=== PATIENT | male | born 1950 | race Caucasian/White ===

== ENCOUNTER 2020-09-29 10:44 | Outpatient (CLI) | payer MEDICARE, OTHER, SELFPAY ==
--- NOTE | ~2020-09-29 | CT_ITS ---
EXAMINATION: CT lung screening DATE: 09/29/2020 10:57 INDICATION: Personal history of nicotine dependence TECHNIQUE: Computed tomography (CT) of the paranasal sinuses was performed without intravenous contra st. The dose-length product was 97.72 mGy-cm. Automated exposure control and iterative reconstruction technique were employed. COMPARISON: CT dated 09/24/2016 FINDINGS: There are calcifications in the spleen, consistent with chronic granulomatous disease. Hear t size normal. No significant pleural or pericardial effusion. No thoracic lymphadenopathy. There are multiple chronic left rib fractures.. Moderate thoracic spondylosis. Mild emphysema. No suspicious p ulmonary nodules or masses. No endobronchial lesions. There is a 2 mm groundglass nodule left upper l obe. IMPRESSION: 1. Lung-RADS category 2: Benign appearance or behavior. Continue annual screening with noncontrast lo w-dose chest CT in 12 months. Reviewed, dictated and finalized at location B. BLACK IMPRESSION: 1. Lung-RADS category 2: Benign appearance or behavior. Continue annual screeni ng with noncontrast low-dose chest CT in 12 months.
== END 2020-09-29 10:45 | disposition home or self-care (01) ==
LOC: ANHIMG 10:48
PROVIDERS: PCP Family Medicine; Visit Provider Family Medicine
DX: Z12.2 Encounter for screening for malignant neoplasm of respiratory organs (principal); Z87.891 Personal history of nicotine dependence
CPT/HCPCS: 71271

== ENCOUNTER 2022-05-21 12:26 | Outpatient (CLI) | payer MEDICARE, OTHER, SELFPAY | END 2022-05-21 12:27 | disposition home or self-care (01) | PROVIDERS: PCP Family Medicine; Visit Provider Physician Assistant | DX: Z79.899 Other long term (current) drug therapy (principal); I10 Essential (primary) hypertension; E78.2 Mixed hyperlipidemia; Z12.5 Encounter for screening for malignant neoplasm of prostate | CPT/HCPCS: 36415 ==

== ENCOUNTER 2022-07-19 10:47 | Outpatient (CLI) | payer MEDICARE, OTHER, SELFPAY | END 2022-07-19 10:48 | disposition home or self-care (01) | LOC: ANHAUDIO 10:48 | PROVIDERS: PCP Family Medicine; Visit Provider Otolaryngology | DX: H90.42 Sensorineural hearing loss, unilateral, left ear, with unrestricted hearing on the contralateral side (principal); H90.71 Mixed conductive and sensorineural hearing loss, unilateral, right ear, with unrestricted hearing on the contralateral side | CPT/HCPCS: 92557; 92567 ==

== ENCOUNTER 2022-10-14 14:02 | Outpatient (CLI) | payer MEDICARE, SELFPAY | END 2022-10-14 14:03 | disposition home or self-care (01) | LOC: ANHAUDASC 14:03 → ANHAUDIO 14:11 | PROVIDERS: PCP Family Medicine; Visit Provider Otolaryngology | DX: H90.3 Sensorineural hearing loss, bilateral (principal) | CPT/HCPCS: 92557; 92567; 99199 ==

== ENCOUNTER 2022-11-26 13:38 | Outpatient (CLI) | payer MEDICARE, SELFPAY ==
[2022-11-26 14:57] LABS: Kit Draw Collected
== END 2022-11-26 13:39 | disposition home or self-care (01) ==
LOC: ANHGOSHLAB 13:39
PROVIDERS: PCP Family Medicine; Visit Provider Family Medicine
DX: Z12.5 Encounter for screening for malignant neoplasm of prostate (principal); E78.2 Mixed hyperlipidemia; F17.210 Nicotine dependence, cigarettes, uncomplicated; Z11.59 Encounter for screening for other viral diseases
CPT/HCPCS: 36415

== ENCOUNTER → 2023-01-28 11:16 | Outpatient (CLI) | payer MEDICARE, SELFPAY ==
--- NOTE | ~2023-01-28 | US_ITS ---
EXAMINATION: US aorta preventative scrn DATE: 01/28/2023 12:39 CDT INDICATION: Preventative screening for aneurysm. Hypertension. Smoking history. High cholesterol. TECHNIQUE: Grayscale, color Doppler, and pulsed Doppler images of the aorta and common iliac arteries were obtained. COMPARISON: None. FINDINGS: The proximal aorta measures 2.6 cm greatest sagittal dimension. The mid aorta measures 2.1 cm greates t sagittal dimension. The distal aorta measures 2 cm greatest sagittal dimension. The right common in ternal iliac artery measures 1 cm. The left common iliac artery measures 1 cm. IMPRESSION: 1. Normal caliber aorta without aneurysm. Reviewed, dictated and finalized at location L.
== END ==
PROVIDERS: PCP Family Medicine; Visit Provider Physician Assistant
DX: Z13.6 Encounter for screening for cardiovascular disorders (principal)
CPT/HCPCS: 76706

== ENCOUNTER → 2023-02-03 08:12 | Outpatient (CLI) | payer MEDICARE, SELFPAY ==
--- NOTE | ~2023-02-03 | CT_ITS ---
EXAMINATION: CT diagnostic chest wo con DATE: 02/03/2023 08:25 INDICATION: Solitary pulmonary nodule. TECHNIQUE: Computed tomography (CT) of the chest was performed without intravenous contrast. The dose -length product was 109.19 mGy-cm. Automated exposure control and iterative reconstruction technique were employed. COMPARISON: CT dated 09/29/2020 FINDINGS: Heart size normal. No thoracic lymphadenopathy. No significant pleural or pericardial effus ion. Multiple healed left rib fractures. There are calcified granulomas in the mediastinum, liver and spleen. No endobronchial lesions. There are developing coarse interstitial changes of the lower lung s with interlobular septal thickening suggesting usual interstitial pneumonia. There is a stable 4 mm lingular nodule, image 74. There is adjacent atelectasis/scarring. No endobronchial lesions. No pneu mothorax. IMPRESSION: 1. Stable 4 mm lingular nodule, likely benign. Follow-up low dose CT chest in 12 months recommended. 2: Interval progression of mild interstitial lung disease with a pattern consistent with usual inter stitial pneumonia. Reviewed, dictated and finalized at location [] IMPRESSION: 1. Stable 4 mm lingular nodule, likely benign. Follow-up low dose CT chest in 1 2 months recommended. 2: Interval progression of mild interstitial lung disease with a pattern consi stent with usual interstitial pneumonia.
== END ==
PROVIDERS: PCP Family Medicine; Visit Provider Physician Assistant
DX: R91.1 Solitary pulmonary nodule (principal); J84.9 Interstitial pulmonary disease, unspecified
CPT/HCPCS: 71250

== ENCOUNTER 2023-06-28 17:33 | Emergency (ER) | payer MEDICARE, SELFPAY ==
--- NOTE | ~2023-06-28 | XR_ITS ---
EXAM: XR elbow LT min 3V DATE: 06/28/2023 18:23 HISTORY: pain, redness, swelling . COMPARISON: None available. FINDINGS: Normal mineralization. No fracture or dislocation. No lytic or blastic lesion. Joint space s are maintained. No erosion or periosteal change. Marked soft tissue swelling over the olecranon. IMPRESSION: Marked soft tissue swelling over the olecranon which may represent olecranon bursitis in the appropriate clinical context. Reviewed, dictated and finalized at location K. UCTION MINER
[2023-06-28 17:40] VITALS: BP 126/71; PULSE 75; RESP 17; TEMP 36.4; O2SAT 100
--- NOTE | 2023-06-28 17:48 | ED.EXTPRO ---
HPI - Extremity Problem General Chief complaint: Extremity Injury, Upper Stated complaint: left arm injury with possible infection Time Seen by Provider: 06/28/23 17:38 Source: patient Mode of arrival: ambulatory Limitations: no limitations History of Present Illness HPI Narrative: Patient is a 72-year-old male who presents to the ED with report of left elbow pain. Patient reports he slipped on carpet 1 week ago and sustained a rubgburn to his L elbow. He states the abrasion was approximately the size of a nickel and does not seem to have healed correctly. Over the last 1 week, patient has developed increased pain, swelling, redness/warmth to left elbow. Reports pain with range of motion of elbow. Noted swelling into his L forearm today which prompted his presentation. Denies numbness or tingling. Reports chills, denies fever. Related Data Home Medications Medication Instructions Recorded Confirmed aspirin 81 mg tablet,delayed 81 mg PO DAILY 06/18/22 01/28/23 release (Adult Low Dose Aspirin) Allergies Allergy/AdvReac Type Severity Reaction Status Date / Time Sulfa (Sulfonamide Allergy Unknown Hives Verified 06/28/23 17:34 Antibiotics) Review of Systems Review of Systems: CONSTITUTIONAL: See HPI. CARDIOVASCULAR: Denies chest pain. RESPIRATORY: Denies dyspnea. GASTROINTESTINAL: Denies abdominal pain, nausea, vomiting. SKIN: See HPI. MUSCULOSKELETAL: See HPI. NEUROLOGIC: Denies tingling, numbness, or weakness. All systems reviewed & are unremarkable except as noted in HPI and below PMFSH Past Medical History Medical History COVID-19 Sciatica Family History Family History Father Hypertension Acute myocardial infarction Mother Family history of Parkinson's disease Social History Social History Smoking packs per day: 1 Smoking cigarettes per day: 20.0 Years smoked: 20 Smoking pack-years: 20.00 Smoking status: Former smoker Tobacco type: cigarettes Second hand tobacco smoke exposure: No Alcohol intake: current Alcohol use details: occasionally Substance use: never Lack of Transportation: No Lack of Food: Never True Current Housing: I Have Housing Concerned About Future Housing: No Difficulty Paying Gas/Electric Bills: No Difficulty Paying for Meds: No Currently Unemployed: No Education: Bachelor's Degree Difficulty w/ Childcare or Family Care: No Exam Narrative: GENERAL: Well appearing, well-nourished, non-toxic, in no acute distress. HEAD: Normocephalic, atraumatic. NECK: Supple. No adenopathy, no masses. RESPIRATORY: Airway patent, respirations nonlabored. Clear to auscultation bilaterally, no rales, rhonchi, wheezing. CARDIOVASCULAR: Regular rate and rhythm without murmurs, rubs, or gallops. Radial pulses 2+ and equal bilaterally. MUSCULOSKELETAL: Moves all extremities. Minor limitations of left elbow range of motion due to swelling and pain. Left elbow with moderate amount of focal swelling over the olecranon, consistent with bursitis picture. Redness, warmth, fluctuance, tenderness noted. Clear fluid-filled blister over the tip of olecranon. Scabbed abrasion just distal to tip of the olecranon. Sensation intact. SKIN: Warm, dry, normal color. No rashes. NEURO: A&O X3. Speech clear. Cranial nerves II-XII grossly intact. No ataxic movements. PSYCHIATRIC: Appropriate mood and affect. Normal interaction. Course Vital Signs Vital signs: Vital Signs Temperature 97.5 F L 06/28/23 17:40 Pulse Rate 75 06/28/23 17:40 Respiratory Rate 17 06/28/23 17:40 Blood Pressure 126/71 06/28/23 17:40 Pulse Oximetry 100 06/28/23 17:40 Oxygen Delivery Room Air 06/28/23 17:40 Temperature 97.5 F L 06/28/23 17:40 Pulse Rate 72 06/28/23 21:16 Res
[2023-06-28 18:15] LABS: Basophils Absolute Auto 0.1 K/mm3 (0.0-0.1); Basophils Percent Auto 0.6 % (0.2-1.2); Eosinophils Absolute Auto 0.1 K/mm3 (0-0.3); Eosinophils Percent Auto 0.4 % (0-4.4); Hematocrit 34.8 % (42.0-52.0); Immature Granulocyte Absolute 0.07 K/mm3 (0.00-0.031); Immature Granulocyte Percent A 0.6 % (0-0.5); Lymphocytes Absolute Auto 2.16 K/mm3 (0.9-3.2); Lymphocytes Percent Auto 17.8 % (18.3-44.2); Mean Corpuscular HGB Conc 34.5 g/dl (32-36); Mean Corpuscular Hemoglobin 32.1 pg (26-34); Mean Platelet Volume 8.7 fl (7.4-10.4); Monocytes Absolute Auto 1.7 K/mm3 (0.1-0.6); Monocytes Percent Auto 14.1 % (2.6-8.5); Neutrophils Absolute Auto 8.1 K/mm3 (1.3-6.7); Neutrophils Percent Auto 66.5 % (45.5-73.1); Platelet Count Result 267 k/mm3 (150-375); Red Blood Count 3.74 M/mm3 (4.6-6.20); Red Cell Distribution Width 12.1 % (11.5-14.5); White Blood Count 12.1 K/mm3 (4.5-10.0)
[2023-06-28 18:25] LABS: Lactic Acid Reflex 2.2 mmol/L (0.7-2.0)
[2023-06-28 18:43] LABS: Anion Gap 11 mmol/L (8-16); Blood Urea Nitrogen 25 mg/dL (9-20); Calcium 9.7 mg/dL (8.4-10.2); Carbon Dioxide 26 mmol/L (22-30); Chloride 95 mmol/L (98-107); Estimated CRCL calculation 66 ml/min; Estimated Glomerular Filt Rate > 60; Glucose 90 mg/dL (65-110); Potassium 3.8 mmol/L (3.4-5.0); Sodium 132 mmol/L (137-145)
[2023-06-28 19:02] LABS: Erythrocyte Sedimentation Rate 53 mm/hr (0-20)
[2023-06-28] MEDS: LIDOCAINE HCL 1% LOCAL INJ 10 ML VIAL 5 ML INFILTRATE (20:45)
[2023-06-28 21:10] LABS: Reflex Lactic Acid Yes or No Add Lactic
[2023-06-28] MEDS: CEPHALEXIN 500 MG CAPSULE PO (21:12)
[2023-06-28 21:16] VITALS: BP 127/71; PULSE 72; RESP 17; O2SAT 100
[2023-06-28 22:02] LABS: Crystals Synovial Fluid None Seen (None Seen)
[2023-06-28 22:03] LABS: Color Synovial Fluid Yellow (Colorless); Source Synovial Fluid Synovial fluid
[2023-06-28 22:04] LABS: Appearance Synovial Fluid Hazy (Clear); Lymphocytes Synovial Fluid 2 %; Monocytes Synovial Fluid 1 %; Neutrophils Synovial Fluid 97 % (0-25); Nucleated Cell Synovial Fluid 6760 /uL (0-200); RBC Synovial Fluid 18000 /uL (0-0)
== END 2023-06-28 21:17 | disposition home or self-care (01) ==
PROVIDERS: Emergency Provider Physician Assistant; PCP Family Medicine
DX: M71.122 Other infective bursitis, left elbow (principal); K92.1 Melena; Z86.16 Personal history of COVID-19; Z87.891 Personal history of nicotine dependence
CPT/HCPCS: 20605; 20610; 36415; 73080; 80048; 83605; 85025; 85652; 86140; 87070; 87075; 87147; 87181; 87186; 87205; 89051; 89060; 99283; A9270

== ENCOUNTER 2023-08-21 11:51 | Emergency (ER) | payer MEDICARE, SELFPAY ==
--- NOTE | ~2023-08-21 | XR_ITS ---
EXAMINATION: XR lumbar spine 2-3V DATE: 08/21/2023 12:19 INDICATION: Low back pain post fall TECHNIQUE: Anteroposterior and lateral views of the lumbar spine, and cone-down lateral view of the l umbosacral junction were obtained. COMPARISON: 07/24/2004 FINDINGS: Interval increase in now 20 degrees lumbar dextroscoliosis. 2 mm retrolisthesis L2 on L3 and 2 mm ant erolisthesis L4 on L5. T12 compression fracture with 20% anterior to central vertebral body height lo ss. Lumbar vertebral body heights are normal. Severe left-sided predominant disc height loss at L2-L3 . Moderate disc height loss at L1-L2, L4-5 and L5-S1. Moderate right and mild left hip osteoarthritis . Mild bilateral sacroiliac osteoarthritis. Calcified nodules at the right lung base consistent with old granulomatous disease. IMPRESSION: 1. Age-indeterminate T12 compression fracture with 20% mixture central vertebral body height loss whi ch is new since CT dated 02/03/2023. 2. Interval progression of now 20 degrees lumbar dextroscoliosis and severe spondylosis. Reviewed, dictated and finalized at location A. TS SPECIALIST IMPRESSION: 1. Age-indeterminate T12 compression fracture with 20% mixture central vertebra l body height loss which is new since CT dated 02/03/2023. 2. Interval progression of now 20 degrees lumbar dextroscoliosis and severe spo ndylosis.
--- NOTE | 2023-08-21 11:58 | ED.BACK ---
HPI - Back Pain/Injury General Chief Complaint: Back Pain/Injury Stated Complaint: FALL/BACK PAIN Time Seen by Provider: 08/21/23 11:58 Source: patient Mode of arrival: ambulatory Limitations: no limitations History of Present Illness HPI Narrative: Wale is a 72-year-old male patient who presenting to the clinic today with complaints of fall with back pain. He reports he tripped over a dog leash in his kitchen and fell face forward. Is unaware if he hit the counter top. Reports pain to his mid to low back over the musculature. This occurred on August 03. He reports he is still having some discomfort and is concerned that he may have done some to his back or kidneys. He denies any loss of bowel or bladder, he denies any saddle anesthesia, no numbness or tingling radiating down the legs. Denies unsteady gait. Related Data Home Medications Medication Instructions Recorded Confirmed aspirin 81 mg tablet,delayed 81 mg PO DAILY 06/18/22 08/21/23 release (Adult Low Dose Aspirin) ezetimibe 10 mg tablet 10 mg PO DAILY 08/21/23 08/21/23 Allergies Allergy/AdvReac Type Severity Reaction Status Date / Time Sulfa (Sulfonamide Allergy Unknown Hives Verified 08/21/23 12:01 Antibiotics) Review of Systems Review of Systems: Pertinent positives per HPI. Patient denies any fever, chills, rash, headache, visual changes, dizziness, cough, runny nose, sore throat, shortness of breath, chest pain, palpitations, nausea, vomiting, diarrhea, constipation, abdominal pain, or any urinary issues. [facility] Past Medical History Medical History COVID-19 Sciatica Family History Family History Father Hypertension Acute myocardial infarction Mother Family history of Parkinson's disease Social History Social History Smoking packs per day: 1 Smoking cigarettes per day: 20.0 Years smoked: 20 Smoking pack-years: 20.00 Smoking status: Former smoker Tobacco type: cigarettes Second hand tobacco smoke exposure: No Alcohol intake: current Alcohol use details: occasionally Substance use: never Lack of Transportation: No Lack of Food: Never True Current Housing: I Have Housing Concerned About Future Housing: No Difficulty Paying Gas/Electric Bills: No Difficulty Paying for Meds: No Currently Unemployed: No Education: Bachelor's Degree Difficulty w/ Childcare or Family Care: No Living arrangements: with family Occupation/Education: retired Comments At the time of my signature, I reviewed and agree with the nursing past medical, surgical, social, and family history. There is no relevant family history pertinent to the patient complaint. Exam Narrative: General: Well-developed, well nourished, in no apparent distress Head: Normocephalic, atraumatic. Cardio: Regular rate and rhythm, s1 and s2 normal, no murmur appreciated. Resp: Clear to auscultation bilaterally, no rhonchi, rales, wheezing or rubs. Musculoskeletal: No deformity, no bruising or swelling, mild-tender to palpation over the lower thoracic/lumbar spine and paraspinous musculature, discomfort with flexion and extension of the back, grossly normal range of motion, muscle strength strong and equal, peripheral pulse strong, no edema, no cyanosis, normal gait and station Course Course Emergency Course: Portions of this record may have been created with voice recognition software. Level of Care: Express Care Visit Vital Signs Vital signs: Vital signs reviewed MDM - Back Pain/Injury MDM Narrative Medical decision making narrative: At the time of visit patient is resting comfortably on the exam table. Patient appears to be nontoxic. Supportive measures were discussed with the patient and they voiced understanding discharge instructions and a
[2023-08-21 12:04] VITALS: BP 139/89; PULSE 87; RESP 16; TEMP 36.3; O2SAT 100
== END 2023-08-21 13:54 | disposition home or self-care (01) ==
PROVIDERS: Emergency Provider Nurse Practitioner Family; PCP Family Medicine
DX: S22.080A Wedge compression fracture of T11-T12 vertebra, initial encounter for closed fracture (principal); W18.09XA Striking against other object with subsequent fall, initial encounter; R31.29 Other microscopic hematuria; R80.8 Other proteinuria; Z87.891 Personal history of nicotine dependence; Z86.16 Personal history of COVID-19; Z79.82 Long term (current) use of aspirin
CPT/HCPCS: 72100; 81003; 99213; G0463

== ENCOUNTER 2024-03-23 09:11 | Outpatient (CLI) | payer MEDICARE, SELFPAY ==
--- NOTE | ~2024-03-23 | CT_ITS ---
CT Scan of the Chest without Contrast: Clinical Indication: Lung cancer screening, nicotine dependence Technique: Contiguous sections were acquired throughout the chest without intravenous contrast. Dose reduction technique was used on this scan by utilizing automated exposure control and iterative recon struction technique. The dose-length product (DLP) was 108.72 mGy-cm. COMPARISON: 02/03/2023 Findings: There is no evidence of any significant mediastinal, hilar or axillary lymphadenopathy. Calcified sub carinal and right hilar lymph nodes are present. Coronary artery calcifications are present. There is no evidence of pleural or pericardial effusion. There is bibasilar mild chronic interstitial disease. Calcified right basilar granuloma present. Images through the upper abdomen reveal no abnormalities. There is severe L1 compression fracture, po ssibly acute, though age-indeterminate overall. Impression: Lung RADS 2-S: Benign appearance. 12 month follow-up screening CT advised. Severe L1 compression fracture, suspected to be acute. Correlate clinically. Consider additional work up as indicated. Reviewed, dictated and finalized at [facility]. Impression: Lung RADS 2-S: Benign appearance. 12 month follow-up screening CT advised. Severe L1 compression fracture, suspected to be acute. Correlate clinically. Co nsider additional workup as indicated.
== END 2024-03-23 09:12 ==
LOC: GOSHIMG 09:12
PROVIDERS: PCP Student in an Organized Health Care Education/Training Program; Visit Provider Student in an Organized Health Care Education/Training Program
DX: Z12.2 Encounter for screening for malignant neoplasm of respiratory organs (principal); Z87.891 Personal history of nicotine dependence; S32.010D Wedge compression fracture of first lumbar vertebra, subsequent encounter for fracture with routine healing; X58.XXXD Exposure to other specified factors, subsequent encounter
CPT/HCPCS: 71271

== ENCOUNTER 2024-09-14 11:19 | Outpatient (CLI) | payer MEDICARE, SELFPAY ==
--- OUTSIDE RECORDS SUMMARY | 2024-09-14 12:29 | XMS_ITS | Referral Summary ---
Author Organization [facility] Address [address] [place] [address] Care Team Providers Care Computer Operations Manager Name Role Phone Unavailable Primary Care Provider Unavailabl e Source Comments [facility] [employer],non-owned Affiliates and Associated Physician Practices is amultiple site organization consisting of ambulatory clinics and hospital sitesin [place], [place], [place] and [place]. This disclosure is being madepursuant to the Care Everywhere program and may not contain all information available regarding this patient. Last updated 18.[facility] [employer] Allergies No known active allergies Immunizations Name Administration Dates Next Due INFLUENZA VACCINE, HIGH-DOSE , QUADR. (FLUZONE HIGH-DOSE QUADRIVALENT; 65Y+), 0.7 ML (HD-IIV4) 07/09/2017 Social History Tobacco Use Types Packs/Day Years Used Date Smoking Tobacco: Never Assessed Sex and Gender Information Value Date Recorded Sex Assigned at Not on file Gender Identity Not on file Sexual Orientation Not on file Plan of Treatment Not on file
--- OUTSIDE RECORDS SUMMARY | 2024-09-14 12:29 | XMS_ITS | Clinical Summary ---
Author Organization [facility] Address [address] [place] [address] Care Team Providers Care Cosmetology Educator Name Role Phone Unavailable Primary Care Provider Unavailabl e Source Comments [facility],non-owned Affiliates and Associated Physician Practices is amultiple site organization consisting of ambulatory clinics and hospital sitesin [place], [place], [place] and [place]. This disclosure is being madepursuant to the Care Everywhere program and may not contain all information available regarding this patient. Last updated 18.[facility] Allergies No known active allergies Immunizations Name Administration Dates Next Due INFLUENZA VACCINE, HIGH-DOSE , QUADR. (FLUZONE HIGH-DOSE QUADRIVALENT; 65Y+), 0.7 ML (HD-IIV4) 07/09/2017 Social History Tobacco Use Types Packs/Day Years Used Date Smoking Tobacco: Never Assessed Sex and Gender Information Value Date Recorded Sex Assigned at Not on file Gender Identity Not on file Sexual Orientation Not on file Plan of Treatment Health Maintenance Due Date Last Done Comments COLOGUARD (AGES 45-75) - COL ON CA SCREENING 1951 COLON MONITORING 1951 COLONOSCOPY - COLON CA SCREENING 1951 CT COLONOGRAPHY - COLON CA SCREENING 1950 Colorectal Cancer Screening 1950 FIT - COLON CA SCREENING 1950 FLEX SIG - COLON CA SCREENING 1950 LIPID TESTING 1950 HEPATITIS C SCREENING 11/27/1969 DTAP/TDAP/TD VACCINES (1 - Tdap) 12/01/1970 PNEUMOCOCCAL VACCINE 50+ (1 of 1 - PCV) 12/01/2001 ZOSTER VACCINE (1 of 2) 12/01/2001 COVID-19 VACCINE (1 - 2023-2 5 season) 2024 INFLUENZA VACCINE (#1) 2024 07/09/2017 DEPRESSION SCREENING 08/18/2024 Respiratory Syncytial Virus (RSV) Vaccine Pt: or over 60 yrs (1 - 1-dose 75+ series) 12/01/2026 HEPATITIS B VACCINE Aged Out No longe r eligible based on patient's age to complete this topic HIB VACCINE Aged Out No longer eligi ble based on patient's age to complete this topic HPV VACCINE Aged Out No longer eligi ble based on patient's age to complete this topic MENINGOCOCCAL (Group B) VACCINE Aged Out No longer eligible based on patient's age to complete this topic MENINGOCOCCAL VACCINE Aged Out No pillo matilde eligible based on patient's age to complete this topic
--- OUTSIDE RECORDS SUMMARY | 2024-09-14 12:29 | XMS_ITS | Continuity of Care Document ---
Author Organization [facility] Address [address] [place] [address] [place] [address] Phone Care Team Providers Care Matchbook Maker Name Role Phone [facility] Unavailable Unavail able Adrien, Sanjana Unavailable Unavailable Advance Directives Directive Yes / No Effective Date File Name No Information Encounters Encounter Description Practice Location Reason(s) For Visit Diagnoses Date Provider Providers Copied on Encounter [facility], [address], [place], [place], [id number], [place] tel:[phone] [facility]3] No Information Dec-0 5-200 5 [facility] [employer] [address], [address], [place], [place], [id number] , [place]. [phone] Consulting Provider: Sanjana Jurado, [address] [place] [address], [address]. tel:[phone] Family History Family Member Type Diagnosis Age At Onset No Information Payers Payer name Insurance type Covered constitution party ID Authoriza tion(s) No Information Social History Type Description Quantity Date Captured Comments Sex Male Smoking Status No Information Chief Complaint And Reason For Visit No Information Reason For Referral Reason For Referral No Information History Of Present Illness Encounter Date Complaint History Of Prese nt Illness No Information Functional Status Date Functional Assessmen t No Information Instructions Date Instruction Additional Infor mation No Information Assessments Type Assessment Date No Information Patient Care Teams Name Effective Dates (start - stop) Status Members No Information
--- OUTSIDE RECORDS SUMMARY | 2024-09-14 12:29 | XMS_ITS | Patient Health Summary ---
Author Organization [facility] Address [address] [place] [address] Care Team Providers Care Director Presales Name Role Phone Unavailable Primary Care Provider Unavailabl e Note from [facility],non-owned Affiliates and Associated Physician Practices is amultiple site organization consisting of ambulatory clinics and hospital sitesin [place], [place], [place] and [place]. This disclosure is being madepursuant to the Care Everywhere program and may not contain all information available regarding this patient. Last updated 18.[facility] Allergies No known active allergies Immunizations * INFLUENZA VACCINE, HIGH-DOSE, QUADR. (FLUZONE HIGH-DOSE QUADRIVALENT; 65Y+), 0.7 ML (HD-IIV4)(Given 07/09/2017) Social History Tobacco Use Types Packs/Day Years Used Date Smoking Tobacco: Never Assessed Sex and Gender Information Value Date Recorded Sex Assigned at Not on file Gender Identity Not on file Sexual Orientation Not on file
[2024-09-14 15:25] LABS: Cholesterol 200 mg/dL (0-200); HDL Direct 97 mg/dL; Triglycerides 57 mg/dL (<150)
[2024-09-14 15:36] LABS: LDL Cholesterol Direct 106 mg/dL
[2024-09-14 15:56] LABS: Prostate Specific Antigen 4.7 ng/mL (< OR = 4.0)
== END 2024-09-14 11:20 | disposition home or self-care (01) ==
PROVIDERS: PCP Family Medicine; Visit Provider Family Medicine
DX: Z12.5 Encounter for screening for malignant neoplasm of prostate (principal); F17.210 Nicotine dependence, cigarettes, uncomplicated; E78.2 Mixed hyperlipidemia; D64.9 Anemia, unspecified; I10 Essential (primary) hypertension
CPT/HCPCS: 36415; 80061; 84153; G0103

== ENCOUNTER 2025-03-15 11:16 | Outpatient (CLI) | payer MEDICARE, SELFPAY ==
--- OUTSIDE RECORDS SUMMARY | 2025-03-15 11:19 | XMS_ITS | Clinical Summary ---
Author Organization [facility] Address [address] [place] [address] Care Team Providers Care Tower Foreman Name Role Phone Unavailable Primary Care Provider Unavailabl e Source Comments [facility],non-owned Affiliates and Associated Physician Practices is amultiple site organization consisting of ambulatory clinics and hospital sitesin [place], [place], [place] and [place]. This disclosure is being madepursuant to the Care Everywhere program and may not contain all information available regarding this patient. Last updated 18.[facility] Allergies No known active allergies Immunizations Immunization Administration Dates Next Due INFLUENZA VACCINE, HIGH-DOSE , QUADR. 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
--- OUTSIDE RECORDS SUMMARY | 2025-03-15 11:20 | XMS_ITS | Continuity of Care Document ---
Author Organization [facility] Address [address] [place] [address] [place] [address] Phone Care Team Providers Care Guard Entrance Registrar Name Role Phone [facility] Unavailable Unavail able Adrien, Sanjana Unavailable Unavailable Advance Directives Directive Yes / No Effective Date File Name No Information Encounters Encounter Description Practice Location Reason(s) For Visit Diagnoses Date Provider Providers Copied on Encounter [facility], [address], [place], [place], [id number], [place] tel:[phone] [facility] No Information Dec-0 5-200 5 [facility] [employer] [address], [address], [place], [place], [id number] , [place]. [phone] Consulting Provider: Sanjana Jurado, [address] [place] [address], [address]. tel:[phone] Family History Family Member Type Diagnosis Age At Onset No Information Payers Payer name Insurance type Covered libertarian ID Authoriza tion(s) No Information Social History [...]
[2025-03-15 13:01] LABS: Hematocrit 42.9 % (42.0-52.0); Hemoglobin 14.7 g/dL (14.0-18.0); Immature Granulocyte Percent A 0.5 % (0-0.5); Lymphocytes Absolute Auto 1.49 K/mm3 (0.9-3.2); Mean Corpuscular HGB Conc 34.3 g/dl (32-36); Mean Corpuscular Hemoglobin 31.9 pg (26-34); Mean Corpuscular Volume 93.1 fl (80-100); Nucleated Red Blood Cells Absolute Auto 0.000 K/mm3 (0.0-0.012); Nucleated Red Blood Cells Perc 0.0 % (0.0-0.2); Platelet Count Result 321 k/mm3 (150-375); Red Blood Count 4.61 M/mm3 (4.6-6.20); White Blood Count 9.2 K/mm3 (4.5-10.0)
[2025-03-15 13:07] LABS: Alanine Aminotransferase 20 U/L (6-50); Albumin Level 4.6 g/dL (3.5-5.1); Alkaline Phosphatase 72 U/L (38-126); Anion Gap 9 mmol/L (4-12); Aspartate Amino Transferase 47 U/L (17-59); Bilirubin,Total 0.9 mg/dL (0.2-1.3); Blood Urea Nitrogen 11 mg/dL (9-20); Calcium 9.9 mg/dL (8.4-10.2); Carbon Dioxide 25 mmol/L (22-30); Chloride 96 mmol/L (98-107); Cholesterol 211 mg/dL (0-200); Estimated Glomerular Filt Rate > 60; Glucose 84 mg/dL (65-110); HDL Direct 88 mg/dL; Potassium 4.7 mmol/L (3.4-5.0); Sodium 130 mmol/L (137-145); Total Protein 7.9 g/dL (6.3-8.2); Triglycerides 91 mg/dL (<150)
[2025-03-15 18:25] LABS: Prostate Specific Antigen 7.8 ng/mL (< OR = 4.0)
== END 2025-03-15 11:17 | disposition home or self-care (01) ==
LOC: ANHGOSHLAB 11:16
PROVIDERS: PCP Family Medicine; Visit Provider Student in an Organized Health Care Education/Training Program
DX: E78.2 Mixed hyperlipidemia (principal); I10 Essential (primary) hypertension; R97.20 Elevated prostate specific antigen [PSA]; D64.9 Anemia, unspecified
CPT/HCPCS: 36415; 80053; 80061; 84153; 85025